=== PATIENT | male | born 1945 | race African-American/Black ===

== ENCOUNTER 2016-09-30 11:20 | Outpatient (CLI) | payer MEDICARE, BC, OTHER ==
[~2016-09-30] VITALS: Ht 170.2 cm; Wt 63.6 kg
--- NOTE | ~2016-09-30 | HEMODYNAMI ---
PATIENT:GREGOR SANTOS MEDICAL RECORD: [id number] : 49 LOCATION:[facility] ADMISSION DATE: 09/30/16 Generatedon:09/30/201614:47 Patient name: GREGOR SANTOS Patient #: [id number] SSN: : 1945 Date of study: 09/30/2016 Page: Of Hemodynamic Procedure Report Patient Data Patient Demographics Procedure consent was obtained First Name: GREGOR Gender: Male Last Name: TOM : 1945 Patient #: [id number] Age: 70 year(s) Race: Black Additional ID: [id number] Contact details Address: [address] [place] [address] State: [place] City: [place] Zip code: [address] Past Medical History Allergies: No known allergies Admission Admission Data Admission Date: 09/30/2016 Admission Time: 11:20 Lab Results Lab Result Date: 09/30/2016 Lab Result Time: 0:00 Biochemistry Name Units Result Min Max BUN mg/dl 24 --(----)-* 7 18 Creatinine mg/dl 1.4 --(----)*- 0.6 1.3 CBC Name Units Result Min Max Hemoglobin g/dl 15.6 --(--*-)-- 13.5 17.5 Procedure Procedure Types Cath Procedure Diagnostic Procedure [facility] w/Coronaries PCI Procedure Coronary Stent Initial Miscellaneous Procedures Moderate Sedation up to 45 minutes Procedure Description Procedure Date Procedure Date: 09/30/2016 Procedure Start Time: 14:17 Procedure End Time: 14:41 Procedure Staff Name Function Milan Beckford MD Performing Physician Robert Garibay RT Scrub Sarah Tubbs RN Nurse Scott Guido RT Monitor Procedure Data Cath Procedure Fluoroscopy Diagnostic fluoroscopy Total fluoroscopy Time: 7.8 time: 7.8 min min Diagnostic fluoroscopy Total fluoroscopy dose: 953 dose: 953 mGy mGy Contrast Material Contrast Material Type Amount (ml) Isovue 300 128 Entry Location Entry Primary Successful Side Size Upsize Upsize Entry Closure Harry ccessful Closure Location (Fr) 1 (Fr) 2 (Fr) Remarks Device Remarks Radial Right 6 Fr Mechanical artery Short Compression Diagnostic catheters Device Type Used For End Catheter Placement Cordis RBL-A catheter (NO LV Angiography CHARGE) Procedure Complications No complications Procedure Medications Medication Administration Route Dosage Oxygen NC 2 l/min Heparin Flush Bag added to field 2 bags (1000units/500ml NS) Lidocaine 2% added to field 20 Radial Cocktail added to field 1 syringe (Verapomil 2mg/Nitro 400mcg/Heparin 1500units) Versed I.V. 1 mg Fentanyl I.V. 50 mcg Versed I.V. 1 mg Fentanyl I.V. 50 mcg Radial Cocktail I.A. 1 syringe (Verapomil 2mg/Nitro 400mcg/Heparin 1500units) Heparin Bolus I.V. 4000 units Integrilin (Bolus I.V. 5.6 ml 2mg/ml) Plavix P.O. 600 mg Hemodynamics Rest HGB: 15.6 (g/dl) Heart Rate: 59 (bpm) Pressure Samples Time Site Value (mmHg) Purpose Heart Use Rate(bpm) 14:20 LV 107/-2,5 EDP 102 Gradients Valve Time Site Site Mean SEP/DFP Peak To Heart Use 1 2 (mmHg) (sec/min) Peak Rate (mmHg) (bpm) Aortic 14:20 LV AO 70 Snapshots Pre Cath Intra NCS Post Cath Vital Signs Time Heart Resp SPO2 NIBP Rhythm Pain Sedation Rate (ipm) (%) (mmHg) Status Level (bpm) 14:00:49 55 22 100 133/80(89) NSR 0 (11) 10(A) , No pain 14:05:05 61 21 97 121/64(90) NSR 0 (11) 10(A) , No pain 14:09:15 59 20 100 108/69(78) NSR 0 (11) 10(A) , No pain 14:13:19 59 20 100 103/67(77) NSR 0 (11) 9(A) , No pain 14:18:14 65 16 100 106/68(79) NSR 0 (11) 9(A) , No pain 14:22:22 65 16 100 89/58(70) NSR 0 (11) 9(A) , No pain 14:26:23 63 16 100 96/55(73) NSR 0 (11) 9(A) , No pain 14:30:25 60 16 100 92/65(78) NSR 0 (11) 9(A) , No pain 14:34:25 61 16 99 96/64(75) NSR 0 (11) 9(A) , No pain 14:38:24 63 16 100 99/70(80) NSR 0 (11) 10(A) , No pain 14:39:44 62 10 100 96/60(78) NSR 0 (11) 10(A) , No pain Medications Time Medication Route Dose Verified Delivered Reason Note s Effectiveness by by 14:00:04 Oxygen NC 2 l/min Milan Sarah Per physician St. Vasu Tubbs RN, MD 14:00:13 Heparin Flush added 2 bags Milan Milan used for Bag to Shakeel [place] procedure (1000units/500ml field MD SCHULZ NS) 14:00:21 Lidocaine 2% added 20ml Milan Milan used for to vial [place] procedure field MD SCHULZ 14:00:27 Radial Cocktail added 1 Milan Milan used for (Verapomil to syringe Shakeel [place] procedure 2mg/Nitro field MD SCHULZ 400mcg/Heparin 1500units) 14:08:16 Versed I.V. 1 mg Milan Sarah for sedation St. Vasu Tubbs RN, MD 14:08:21 Fentanyl I.V. 50 mcg Milan Sarah for sedation St. Vasu Tubbs RN, MD 14:11:00 Versed I.V. 1 mg Milan Sarah for sedation St. Vasu Tubbs RN, MD 14:11:08 Fentanyl I.V. 50 mcg Milan Sarah for sedation St. Vasu uTbbs RN, MD 14:16:55 Radial Cocktail I.A. 1 Milna Milan for (Verapomil syringe [place] vasodilation 2mg/Nitro MD SCHULZ 400mcg/Heparin 1500units) 14:29:02 Heparin Bolus I.V. 4000 Milan Sarah for dose units St. Vasu Tubbs RN anticoagulation verified MD with dr hinds 14:31:30 Integrilin I.V. 5.6 ml Milan Sarah for wast ed (Bolus 2mg/ml) Shakeel Caroline RN antiplatelet 4.4mL MD therapy 14:38:33 Plavix P.O. 600 mg Milan Smith for St. Vasu Tubbs RN antiplatelet MD therapy Procedure Log Time Note 13:30:11 Scott Guido RT(R) sent for patient. Start room use. 13:51:49 Informed consent obtained and on chart 13:52:17 Time tracking: Regular hours 13:52:20 Plan of Care:Hemodynamics will remain stable., Cardiac rhythm will remain stable., Comfort level will be maintained., Respiratory function will remain adequate., Patient/ family verbilizes understanding of procedure., Procedure tolerated without complication., Recovers from procedure without complications.. 13:52:29 Patient received from Pre/Post Procedure Room to [facility] 2 Alert and oriented. Tansferred to table in Supine position. 13:52:30 Warm blankets applied, and lynda hugger turned on for patient comfort. 13:52:30 Correct patient and procedure confirmed by team. 13:52:31 ECG and BP/O2 sat monitors applied to patient. 13:59:55 Vital chart was started 14:00:04 Oxygen 2 l/min NC was administered by Sarah Tubbs RN; Per physician; 14:00:13 Heparin Flush Bag (1000units/500ml NS) 2 bags added to field was administered by Milan Beckford MD; used for procedure; 14:00:21 Lidocaine 2% 20ml vial added to field was administered by Milan Beckford MD; used for procedure; 14:00:27 Radial Cocktail (Verapomil 2mg/Nitro 400mcg/Heparin 1500units) 1 syringe added to field was administered by Milan Beckford MD; used for procedure; 14:03:31 Baseline sample Acquired. 14:03:34 Rhythm: sinus rhythm 14:03:35 Full Disclosure recording started 14:05:55 H&P Date Dictated: 09/24/2016 Within 30 days and on chart., H&P Addendum completed by physician on day of procedure. (MUST COMPLETE FOR ALL OUTPATIENTS). 14:05:57 Pre-procedure instructions explained to patient. 14:05:57 Pre-op teaching completed and patient verbalized understanding. 14:05:59 Family in waiting room. 14:06:00 Patient NPO since Midnight. 14:06:05 Patient allergic to No known allergies 14:06:07 Is the patient allergic to Iodine/contrast media? No. 14:06:11 Is patient on blood thinner?No 14:06:13 Patient diabetic? No. 14:06:13 ----Pre-sedation anethsthesia assessment.---- 14:06:15 Previous problem with sedation/anesthesia? No ? 14:06:17 Snore? No 14:06:18 Sleep apnea? No 14:06:19 Deviated septum? No 14:06:20 Opens mouth fully? Yes 14:06:21 Sticks out tongue? Yes 14:06:26 Airway obstruction? Yes COPD 14:06:30 Dentures? No ? 14:06:32 Pre procedure: right dorsailis pedis pulse 1+ Palpable, but thready & weak; easily obliterated 14:06:35 Modified Alvaro's test Ulnar > 7 seconds. 14:06:37 Patient pain scale 0/10 ?. 14:06:48 IV patent on arrival in left wrist with 0.9% NaCl at 10ml/hr. 14:07:22 Lab Result : BUN 24 mg/dl 14:07:22 Lab Result : Creatinine 1.4 mg/dl 14:07:22 Lab Result : Hemoglobin 15.6 g/dl 14:07:26 Lab results completed and on chart. 14:07:28 Lab results completed and on chart. 14:07:34 Right Radial & Right Groin area was prepped with chlora-prep and draped in sterile fashion 14:07:34 Alarms reviewed by R. N. 14:07:35 Sharps counted by scrub and verified by R.N. 14:07:36 --------ALL STOP TIME OUT------ 14:07:36 Final Timeout: patient, procedure, and site verified with staff and physician. All members of the team are in agreement. 14:07:38 Right Radial & Right Groin site verified by team. 14:07:40 Physical assessment completed. ASA score P 2 - A patient with mild systemic disease as per Milan Beckford MD. 14:07:44 Sedation plan: IV Moderate Sedation Versed, Fentanyl 14:08:16 Versed 1 mg I.V. was administered by Sarah Tubbs RN; for sedation; 14:08:21 Fentanyl 50 mcg I.V. was administered by Sarah Caroline RN; for sedation; 14:11:00 Versed 1 mg I.V. was administered by Sarah Tubbs RN; for sedation; 14:11:08 Fentanyl 50 mcg I.V. was administered by Sarah Tubbs RN; for sedation; 14:16:55 Radial Cocktail (Verapomil 2mg/Nitro 400mcg/Heparin 1500units) 1 syringe I.A. was administered by Milan Beckford MD; for vasodilation; 14:17:06 Use device set Radial Dx 14:17:07 Acist Syringe opened to sterile field. 14:17:08 Medline Cath Pack opened to sterile field. 14:17:08 Bag Decanter opened to sterile field. 14:17:08 Terumo 6Fr Slender Glidesheath opened to sterile field. 14:17:09 St Jv 260cm J .035 wire opened to sterile field. 14:17:09 Acist Hand Control opened to sterile field. 14:17:10 Acist Manifold opened to sterile field. 14:17:10 Tegaderm 4 x 4 opened to sterile field. 14:17:10 MBrace Wrist Support opened to sterile field. 14:17:12 Procedure started. 14:17:25 Local anesthetic to right radial artery with Lidocaine 2% by Milan Beckford MD.INITIAL ACCESS ONLY 14:17:33 A 6 Fr Short sheath was inserted into the Right Radial artery 14:17:39 Zero performed for pressure channel P1 14:18:02 A Cordis RBL-A catheter (NO CHARGE) was advanced over the wire and used for LV Angiography. 14:20:01 LV angiography performed. 14:20:02 LV gram done using AU 14:20:07 LV hemodynamics recorded. 14:20:09 Injector settings: Ml/sec: 5, Volume: 15., 14:20:18 EF : 55 % 14:21:07 RCA angiography performed. 14:23:02 Catheter removed. 14:23:26 Cordis 6FR XBLAD 3.5 guide catheter opened to sterile field. 14:23:42 6 Fr XBLAD 3.5 guide catheter was inserted over the wire 14:25:25 LCA angiography performed. 14:27:23 Verdugo [place] 300cm 0.014 guide wire opened to sterile field. 14:27:23 Fashionchick BasixCompak Inflation Kit opened to sterile field. 14:27:40 ACC PCI Site: [facility] has 80% stenosis. 14:27:42 ACC Pre-intervention CARRIE Flow is 3. 14:29:02 Heparin Bolus 4000 units I.V. was administered by Sarah Tubbs RN; for anticoagulation; dose verified with dr hinds 14:29:41 COUGAR wire advanced. 14:31:28 Inflation number: 1 A Prichard Sci [place] 3.0 X 12 balloon was prepped and advanced across the Mid CX, then inflated to 10 ISACC for 0:15 (min:sec). 14:31:30 Integrilin (Bolus 2mg/ml) 5.6 ml I.V. was administered by Sarah Tubbs RN; for antiplatelet therapy; wasted 4.4mL 14::41 Inflation number: 2 The Prichard Sci [place] 3.0 X 12 balloon was reinflated across the Mid CX, to 8 ISACC for 0:09 (min:sec). 14:31:58 Inflation number: 3 The Prichard Sci [place] 3.0 X 12 balloon was reinflated across the Mid CX, to 4 ISACC for 0:11 (min:sec). 14:33:36 Balloon removed over the wire. 14:36:05 Inflation Number: 4 A Nexx Studiotronic Integrity 3.0 X 15 stent was prepped and advanced across the Mid CX. The stent was deployed at 14 ISACC for 0:45 (min:sec). 14:36:20 Stent catheter was removed intact over wire. 14:36:20 Wire removed. 14:36:21 Guide catheter removed. 14:36:34 Contrast amount:Isovue 300 128ml. 14:36:40 Sheath removed intact; hemostasis achieved with Mechanical Compression to the Right Radial artery. 14:36:46 Terumo TR Band Standard opened to sterile field. 14:38:11 Procedure ended.(Physican Out) 14:38:30 Fluoroscopy time 07.80 minutes. 14:38:33 Plavix 600 mg P.O. was administered by Sarah Tubbs RN; for antiplatelet therapy; 14:38:35 Fluoroscopy dose: 953 mGy 14:38:35 Flurop Dose total: 953 14:38:38 Sharps counted by scrub and verified by R.N. 14:38:40 TR band inflated with 10cc of air. 14:38:42 Insertion/operative site no bleeding no hematoma. 14:38:45 Post right radial artery:stable 14:38:46 Post Procedure Pulses reassessed and unchanged 14:38:51 Post procedure rhythm: sinus rhythm 14:38:52 Post procedure instruction explained to patient.Patient verbalizes understanding. 14:39:06 Procedure type changed to Cath procedure, Diagnostic procedure, LHC, LHC w/Coronaries, PCI procedure, Coronary Stent Initial, Miscellaneous Procedures, Moderate Sedation up to 45 minutes 14:39:10 Procedure and supply charges have been captured, reviewed, submitted and are correct. 14:39:34 Procedure Complication : No complications 14:39:36 Vital chart was stopped 14:39:36 See physician's report for complete and final results. 14:41:05 Report given to Pre/Post Procedure Room. 14:41:08 Patient transfered to Pre/Post Procedure Room with Stretcher. 14:41:10 Procedure ended. 14:41:10 Full Disclosure recording stopped 14:41:17 ACC-PCI Only Patient was given prescriptions, or instructed by Milan Beckford MD to start/continue the following medications upon discharge: Plavix 14:41:18 End room use (Document Last) Intervention Summary Intervention Notes Time ActionType Lesion and Equipment Action# Pressure Duration Attributes Used 14:31:28 Inflate Mid CX Prichard 1 10 00:15 balloon Sci [place] 3.0 X 12 balloon 14:31:41 Reinflate Mid CX Prichard 2 8 00:09 balloon Sci [place] 3.0 X 12 balloon 14:31:58 Reinflate Mid CX Prichard 3 4 00:11 balloon Sci [place] 3.0 X 12 balloon 14:36:05 Place stent Mid CX Medtronic 4 14 00:45 Integrity 3.0 X 15 stent Device Usage Item Name Manufacture Quantity Catalog Number Hospital Part Current Mini mal Lot# / Charge Number Stock Stock Serial# Code [facility] 1 07575 [id number] 742410 [id number] 20 Syringe Medical Systems Inc Medline Cardinal 1 [id number] 049867 79305 458238 5 Cath Pack Health Bag Microtek 1 2001S 297692 18905 799111 5 Tappx Medical Inc. Terumo 6Fr Terumo 1 [id number] 082645 900933 535552 [address] Jv St Jv 1 610291 304843 627913 149100 30 260cm J .035 wire Acist Hand Acist 1 22327 949104 740586 126720 5 Control Medical Systems Inc Acist Acist 1 97772 244444 620169 287233 5 Manifold Medical Systems Inc Tegaderm 4 3M 1 1626W 470693 057209 964157 5 x 4 MBrace Advanced 1 140-0250-00 969878 52003 584055 5 Wrist Vascular Support Dynamics Cordis Cardinal 1 [id number] 825552 802090 5 RBL-A Health catheter (NO CHARGE) Cordis 6FR Cardinal 1 [id number] 607065 007711 378353 10 XBLAD 3.5 Health guide catheter Verdugo Verdugo 1 [id number] 476002 246724 421392 1 [place] Vascular 300cm 0.014 guide wire Merit Merit 1 [id number] 924352 678851 738102 15 BasixCompak Medical Inflation Kit Prichard Sci Prichard 1 [id number] 830387 686896 537764 1 [id number] Kogent Surgical 3.0 X 12 balloon Medtronic Medtronic 1 [id number] 600449 512333 195195 1 [id number] Integrity 3.0 X 15 stent Terumo TR Terumo 1 [id number] 044070 584734 580678 40 Band Standard Signature Audit [place] Stage Time Signature Unsigned Intra-Procedure 09/30/2016 Scott Guido 2:47:52 PM RT(R) Signatures Monitor : Scott Guido RT Signature : Date : Time : [facility] [address] [place] [address]
[2016-09-30] MEDS ORDERED: SPIRIVA18 MCG INH (12:10)
[2016-09-30] MEDS ORDERED: SYMBICORT 16010.2 GM INH (12:10)
[2016-09-30 12:11] VITALS: BP 103/72; Ht 170.2 cm; Wt 63.6 kg
[2016-09-30 12:30] LABS: BASOPHILS 0.4 % (0.0-2.0); EOSINOPHILS 1.9 % (0-7); HEMATOCRIT 46.7 % (42.0-54.0); HEMOGLOBIN 15.6 g/dL (13.5-17.5); IMMATURE GRANULOCYTES 0.4 % (0-5); LYMPHOCYTES 37.4 % (15-50); MCH 28.3 pg (26.0-34.0); MCHC 33.4 g/dL (31.0-37.0); MCV 84.6 fL (80.0-100.0); MEAN PLATELET VOLUME 10.9 fL (7.4-10.4); MONOCYTES 7.9 % (2-11); PLATELET COUNT 251 10x3/uL (130-400); RBC 5.52 10x6/uL (4.20-6.10); RDW 16.1 % (11.5-14.5); WBC 5.7 10x3/uL (4.8-10.8)
[2016-09-30 13:00] LABS: ANION GAP 13.4 mmol/L (8-16); CALCIUM 8.8 mg/dL (8.5-10.1); CARBON DIOXIDE 23.8 mmol/L (21.0-32.0); CREATININE - SERUM 1.4 mg/dL (0.6-1.3); POTASSIUM - SERUM 4.2 mmol/L (3.5-5.1)
[2016-09-30] MEDS ORDERED: PLAVIX75 MG PO (17:04)
--- NOTE | 2016-09-30 17:56 | NUR ---
1515-TR BAND INTACT, NO BLEEDING AT SITE, RESTING 1545-NO CHANGES TO SITE, CONT TO REST
--- NOTE | 2016-09-30 18:43 | NUR ---
182-AWAITING RIDE, DENIES FURTHUR NEEDS- BROTHER IN LAW HERE. D'C HOME
--- NOTE | 2016-10-05 13:10 | OP ---
PATIENT NAME: GREGOR SANTOS MEDICAL RECORD: [id number] :49 LOCATION:D.CAT ADMISSION DATE: SURGEON: MICHAEL STILES MD DATE OF OPERATION: 09/30/2016 PROCEDURES: Left heart catheterization, selective coronary angiography, right radial artery approach. CATHETERS: A 5-Panamanian sheath. The procedure was well tolerated. We proceeded immediately to PTCA stenting of the circumflex after procedure was finished. FINDINGS: Left ventriculography in 30-degree AU view: Normal wall motion and normal systolic function. CORONARY ANATOMY: LEFT MAIN: Left main is free of disease. LAD: Free of disease in the diagonal system. CIRCUMFLEX: Has a tight stenosis of 80% in the takeoff of first OM. RIGHT CORONARY ARTERY: Normal. IMPRESSION: Single-vessel disease involving circumflex. PLAN: Intervention of this vessel momentarily. DESCRIPTION OF PROCEDURE: A 5-Panamanian sheath was changed for a 6-Panamanian sheath. An XB LAD guide catheter provided excellent guide catheter support followed by 300 cm Grant XT wire placed across the tight stenosis down to the portion of this vessel. Stent deployed was a 3.0 x 15 mm Integrity nondrug-eluting stent. It was inflated to 14 atmospheres for 45 seconds. Final angiography shows excellent resolution of 80% stenosis, no significant residual. CARRIE flow was 3 throughout the procedure. Integrilin was used in the case. Plavix was loaded in the lab. Sheath was closed with TR band. TRANSINT:[id number] Voice Confirmation ID: [id number] DOCUMENT ID: [id number] MICHAEL STILES MD at 1310 CC: [id number] DICTATION DATE: 09/30/16 1446 DRUG ROOM OPERATOR: 09/30/16 1554 DEP CLI 09/30/16 [place] [id number] [place] [id number]
== END 2016-09-30 18:25 | disposition home or self-care (01) ==
LOC: D.CATH 11:20
PROVIDERS: Internal Medicine Interventional Cardiology
DX: I20.9 Angina pectoris, unspecified (principal); R94.39 Abnormal result of other cardiovascular function study; Z87.891 Personal history of nicotine dependence

== ENCOUNTER 2017-04-19 10:34 | Emergency (ER) | payer MEDICARE, BC, OTHER ==
[2016-09-30 12:11] VITALS: BMI 21.9
[~2017-04-19 10:34] MED LIST: PLAVIX75 MG PO; SPIRIVA18 MCG INH; SYMBICORT 16010.2 GM INH
== END 2017-04-19 16:48 | disposition home or self-care (01) ==
LOC: D.ER 10:34
DX: R42 Dizziness and giddiness (principal)

== ENCOUNTER → 2017-06-03 07:18 | Outpatient (CLI) | payer MEDICARE, BC, OTHER ==
[2016-09-30 12:11] VITALS: BMI 21.9
[2017-06-03 07:55] LABS: ANION GAP 11.5 mmol/L (8-16); CALCIUM 8.7 mg/dL (8.5-10.1); CARBON DIOXIDE 27.5 mmol/L (21.0-32.0); CREATININE - SERUM 1.4 mg/dL (0.6-1.3)
== END | disposition home or self-care (01) ==
LOC: D.LAB 07:18 → D.MRI 08:00
PROVIDERS: Legal Medicine
DX: R42 Dizziness and giddiness (principal)

== ENCOUNTER → 2017-06-07 10:09 | Outpatient (CLI) | payer MEDICARE, BC, OTHER ==
[2016-09-30 12:11] VITALS: BMI 21.9
== END | disposition home or self-care (01) ==
LOC: D.LAB 06-03 07:45 → D.CT 10:09
DX: R59.0 Localized enlarged lymph nodes (principal)

== ENCOUNTER → 2017-07-05 14:24 | Outpatient (CLI) | payer MEDICARE, BC, OTHER ==
[2016-09-30 12:11] VITALS: BMI 21.9
== END | disposition home or self-care (01) ==
LOC: D.MRI 14:24
DX: M54.2 Cervicalgia (principal)

== ENCOUNTER → 2018-07-20 11:56 | Outpatient (CLI) | payer MEDICARE, BC, OTHER ==
[2016-09-30 12:11] VITALS: BMI 21.9
== END | disposition home or self-care (01) ==
LOC: D.RAD 11:56
DX: M79.672 Pain in left foot (principal)

== ENCOUNTER → 2018-08-30 13:41 | Outpatient (CLI) | payer MEDICARE, BC, OTHER ==
[2016-09-30 12:11] VITALS: BMI 21.9
--- NOTE | 2018-09-01 13:10 | EC ---
PATIENT:GREGOR SANTOS DATE OF SERVICE: 08/30/18 SEX: M MEDICAL RECORD: [id number] DATE OF : [birth year] [facility] AGE OF PATIENT: 72 ADMISSION DATE: 08/30/18 REFERRING PHYSICIAN: INTERPRETING PHYSICIAN: MICHAEL STILES MD ECHOCARDIOGRAM REPORT ECHO CHARGES 4 ECHO COMPLETE Date: 08/30/18 CLINICAL DIAGNOSIS: CAD ECHOCARDIOGRAPHIC MEASUREMENTS (adult normal given) AC root (d.<3.7cm) 2.9 cm LV Septum d (<1.2 cm> 1.2 cm Valve Excursion 1.6 cm LV Septum (systole) 1.3 cm Left Atria (s.<4.0cm> 3.0 cm LVPW d(<1.2cm) 1.1 cm RV (d.<2.3cm) 3.7 cm LVPW (sytole) 1.2 cm LV diastole(<5.6CM) 4.6 cm MV E-F(>70mm/sec) cm LV systole 2.5 cm LVOT Diameter 1.5 cm MV exc.(>10mm) 1.4 cm Est.ejection fraction (50-75%) % DOPPLER: LVIT cm/sec A 53.0 cm/sec E 86.0 cm/sec LA cm/sec RVSP 27 mmHg LVOT 96 cm/sec AOP1/2T m/s Asc. Ao 143 cm/sec RVOT 66 cm/sec RA cm/sec PA 83 cm/sec AV Gradient Peak 8.13 mmHg AV Mean 4.38 mmHg AV Area 2.2 cm MV Gradient Peak 2.66 mmHg MV Mean 0.93 mmHg MV Area cm COMMENTS: Tipple Boss: 2 JOSE ANTONIO JOHNSON Satellite Tv Installer: 3 Dr. Beckford TAPE# PACS Pericardial Effusion N DATE OF SERVICE: Adequate 2D, color flow, spectral Doppler, and M-Mode. No LVH. LV internal dimension is normal. Wall motion is normal. EF is greater than or equal to 55%. Aortic valve is tricuspid. No evidence of stenosis by Doppler interrogation. Left atrium normal at 3.0 cm. Mitral valve shows no prolapse. Trace MR. Right-sided chamber size is grossly normal. Trace TR. TRANSINT:[id number] Voice Confirmation ID: [id number] DOCUMENT ID: [id number] ECHOCARDIOGRAM REPORT [id number] GREGOR SANTOS MICHAEL STILES MD at 1310 CC: [id number] DICTATION DATE: 08/31/18 1422 INDUSTRIAL ENGINEERING: 09/01/18 0007 DEP CLI 08/30/18 [place] [id number] [place] [address]
== END | disposition home or self-care (01) ==
LOC: D.HCCARDIO 13:41
PROVIDERS: ATTEND Internal Medicine Interventional Cardiology
DX: I25.10 Atherosclerotic heart disease of native coronary artery without angina pectoris (principal)

== ENCOUNTER → 2019-09-12 10:42 | Outpatient (CLI) | payer MEDICARE, BC, OTHER ==
[2016-09-30 12:11] VITALS: BMI 21.9
--- NOTE | 2019-09-14 14:26 | EC ---
PATIENT:GREGOR SANTOS DATE OF SERVICE: 09/12/19 SEX: M MEDICAL RECORD: [id number] DATE OF : [birth year] [facility] AGE OF PATIENT: 73 ADMISSION DATE: 09/12/19 REFERRING PHYSICIAN: INTERPRETING PHYSICIAN: MICHAEL STILES MD ECHOCARDIOGRAM REPORT ECHO CHARGES 4 ECHO COMPLETE Date: 09/12/19 CLINICAL DIAGNOSIS: PRE-OP EVALUATION H/O HTN/CAD ECHOCARDIOGRAPHIC MEASUREMENTS (adult normal given) AC root (d.<3.7cm) 3.2 cm LV Septum d (<1.2 cm> 1.2 cm Valve Excursion 1.8 cm LV Septum (systole) 1.5 cm Left Atria (s.<4.0cm> 4.1 cm LVPW d(<1.2cm) 1.1 cm RV (d.<2.3cm) 2.4 cm LVPW (sytole) 1.5 cm LV diastole(<5.6CM) 4.2 cm MV E-F(>70mm/sec) cm LV systole 2.5 cm LVOT Diameter 1.7 cm MV exc.(>10mm) cm Est.ejection fraction (50-75%) % DOPPLER: LVIT cm/sec A 27.0 cm/sec E 66.0 cm/sec LA cm/sec RVSP 33.0 mmHg LVOT 94.0 cm/sec AOP1/2T m/s Asc. Ao 135 cm/sec RVOT 46.0 cm/sec RA cm/sec PA 66.0 cm/sec AV Gradient Peak 7.3 mmHg AV Mean 3.9 mmHg AV Area 1.6 cm MV Gradient Peak 2.9 mmHg MV Mean 0.60 mmHg MV Area cm COMMENTS: OP - HC Tapeman: 1 EDILBERTO BRINA Barrel Racer: 3 Dr. Beckford TAPE# PACS Pericardial Effusion N DATE OF SERVICE: Adequate 2D, color flow imaging, spectral Doppler, and M-Mode Borderline LVH. LV internal dimensions are normal. Wall motion is normal. EF is greater than or equal to 55%. Aortic valve is tricuspid. No evidence of stenosis by Doppler interrogation. Left atrium is mildly dilated at 4.1 cm. Mitral valve shows no prolapse. Trace MR. Right-sided chambers are grossly normal. Moderate TR. ECHOCARDIOGRAM REPORT [id number] GREGOR SANTOS TRANSINT:[id number] Voice Confirmation ID: [id number] DOCUMENT ID: [id number] MICHAEL STILES MD at 1426 CC: [id number] DICTATION DATE: 09/13/19 1100 SANDING MACHINE OPERATOR: 09/13/19 1356 DEP CLI 09/12/19 [place] [id number] [place] [id number]
== END | disposition home or self-care (01) ==
LOC: D.HCCECHO 10:42
PROVIDERS: ATTEND Internal Medicine Interventional Cardiology
DX: I25.10 Atherosclerotic heart disease of native coronary artery without angina pectoris (principal)

== ENCOUNTER 2020-01-29 05:48 | Day surgery (SDC) | payer MEDICARE, BC, OTHER ==
[~2020-01-29] VITALS: Ht 170.2 cm; Wt 65.9 kg
[2020-01-29 06:22] LABS: BASOPHILS 0.2 % (0-2); EOSINOPHILS 2.9 % (0-7); HEMATOCRIT 47.3 % (42.0-54.0); HEMOGLOBIN 15.2 g/dL (13.5-17.5); IMMATURE GRANULOCYTES 0.3 % (0-5); LYMPHOCYTES 41.6 % (15-50); MCH 27.4 pg (26.0-34.0); MCHC 32.1 g/dL (31.0-37.0); MCV 85.2 fL (80.0-100.0); MEAN PLATELET VOLUME 9.9 fL (7.4-10.4); MONOCYTES 10.9 % (2-11); NEUTROPHILS 44.1 % (40-80); PLATELET COUNT 223 10x3/uL (130-400); RBC 5.55 10x6/uL (4.20-6.10); RDW 17.5 % (11.5-14.5); WBC 5.9 10x3/uL (4.8-10.8)
[2020-01-29] MEDS ORDERED: LIPITOR80 MG PO (06:35)
[2020-01-29] MEDS ORDERED: VENTOLIN HFA [SP8 GM INH (06:35)
[2020-01-29 06:43] LABS: ANION GAP 7.4 mmol/L (8-16); CARBON DIOXIDE 25.4 mmol/L (21.0-32.0); CREATININE - SERUM 1.5 mg/dL (0.6-1.3); POTASSIUM - SERUM 3.8 mmol/L (3.5-5.1)
[2020-01-29 06:52] VITALS: BP 116/70; Ht 170.2 cm; Wt 65.9 kg
--- NOTE | 2020-01-29 09:05 | NUR ---
DC INSTRUCTIONS GIVEN TO PT. STATES UNDERSTANDING. DC'D IV CATH FULLY INTACT. I CALLED PT'S WRAPPING MACHINE OPERATOR AND LEFT A MESSAGE. PT ABLE TO CONTACT WRAPPING MACHINE OPERATOR. [facility] WILL BE HERE SHORTLY TO BUILDING SERVICES SUPERVISOR PT FROM HOSPITAL. WILL DC ONCE PT'S WRAPPING MACHINE OPERATOR ARRIVES.
--- NOTE | 2020-01-29 09:21 | NUR ---
PT VOIDED. PT LEFT UNIT VIA WC AT 4745
--- NOTE | 2020-01-30 15:26 | OP ---
PATIENT NAME: GREGOR SANTOS MEDICAL RECORD: [id number] :49 LOCATION:[facility] ADMISSION DATE: SURGEON: KARLI GOEL DO DATE OF OPERATION: 01/29/2020 PROCEDURE: EGD with biopsies. INDICATION FOR PROCEDURE: Nausea and left upper quadrant abdominal pain. SCOPE: Olympus video gastroscope. MEDICATIONS: Propofol 150 mg IV per anesthesia. ESTIMATED BLOOD LOSS: Minimal. COMPLICATIONS: None. FINDINGS: Informed consent was given. The patient was made comfortable with the above medication. After reaching an adequate level of sedation by slow IV push, the patient was placed on his left side. The endoscope was advanced under direct visualization through the mouth to the second portion of the duodenum. The esophagus appeared normal down to the GE junction. At the GE junction, there were minor changes consistent with LA class A reflux-induced esophagitis. The endoscope was advanced beyond the GE junction into the stomach and retroflexed to view the cardia and fundus. There was a small sliding hiatal hernia without associated ulcers or other abnormalities. Throughout the entire stomach, there were patches of erythema and granularity consistent with mild chronic gastritis. Cold forceps biopsies were taken from the antrum and incisura to submit for histopathology and to rule out the presence of H. pylori. The endoscope was advanced beyond the pylorus into the duodenum, which appeared normal to the second portion. The endoscope was then withdrawn from the patient. The patient tolerated the procedure well and there were no complications. IMPRESSION: 1. LA class A reflux-induced esophagitis. 2. Small sliding hiatal hernia. 3. Mild chronic gastritis changes. PLAN AND RECOMMENDATIONS: 1. Discharge home when recovery parameters are met. 2. Follow up biopsy specimen results. 3. GERD diet and reflux precautions. 4. Continue current medications. 5. The patient currently has no symptoms of nausea or abdominal pain as well as no reflux or heartburn. Considering that he has lack of any symptoms, I would not recommend starting any antacid medications consistently at this time. He can use as needed Pepcid or famotidine if symptoms do arise, then should notify the GI clinic if the symptoms do return. 6. Follow up in GI clinic as needed and maintain screening colonoscopies as scheduled. TRANSINT:[id number] Voice Confirmation ID: [id number] DOCUMENT ID: [id number] OPERATIVE REPORT [id number] GREGOR SANTOSKARLI HICKS DO at 1526 CC: [id number] DICTATION DATE: 01/29/20 08 LABORER VINEYARD: 01/29/20 1730 [facility] 01/29/20 [place] [id number] [place] [address]
== END 2020-01-29 09:23 | disposition home or self-care (01) ==
LOC: D.OPS 05:48
PROVIDERS: Anesthesiology; ATTEND Internal Medicine Gastroenterology
DX: R11.0 Nausea (principal); R10.12 Left upper quadrant pain

== ENCOUNTER 2020-03-07 10:07 | Emergency (ER) | payer MEDICARE, BC, OTHER ==
[~2020-03-07] VITALS: Ht 170.2 cm; Wt 65.9 kg
[~2020-03-07 10:07] MED LIST changes: +LIPITOR80 MG PO; +VENTOLIN HFA [SP8 GM INH
[2020-03-07 10:20] VITALS: BP 113/72; Ht 170.2 cm; Wt 65.9 kg
== END 2020-03-07 12:41 | disposition home or self-care (01) ==
LOC: D.ER 10:07
DX: S63.502A Unspecified sprain of left wrist, initial encounter (principal); J44.9 Chronic obstructive pulmonary disease, unspecified; W19.XXXA Unspecified fall, initial encounter; Y93.9 Activity, unspecified; Y92.9 Unspecified place or not applicable

== ENCOUNTER 2020-03-25 11:15 | Day surgery (SDC) | payer MEDICARE, BC, OTHER ==
[~2020-03-25] VITALS: Ht 170.2 cm; Wt 67.3 kg
[2020-03-25 11:48] LABS: BASOPHILS 0.2 % (0-2); HEMATOCRIT 48.6 % (42.0-54.0); HEMOGLOBIN 15.6 g/dL (13.5-17.5); IMMATURE GRANULOCYTES 0.2 % (0-5); LYMPHOCYTES 49.1 % (15-50); MCH 27.3 pg (26.0-34.0); MCHC 32.1 g/dL (31.0-37.0); MONOCYTES 8.8 % (2-11); NEUTROPHILS 39.7 % (40-80); PLATELET COUNT 262 10x3/uL (130-400); RBC 5.72 10x6/uL (4.20-6.10); RDW 16.8 % (11.5-14.5)
[2020-03-25 12:01] LABS: APTT 41.5 SECONDS (22.8-39.4); INR 1.08 (0.85-1.17)
[2020-03-25 12:49] VITALS: BP 125/74; Ht 170.2 cm; Wt 67.3 kg
--- NOTE | 2020-03-25 14:53 | NUR ---
1440 IV DC'D. CATHETER TIP INTACT. NO BLEEDING AT SITE. BANDAID APPLIED. PT VOICES UNDERSTANDING OF DISCHARGE INSTRUCTIONS THAT WAS REVIEWED WITH HIM.
--- NOTE | 2020-03-27 17:32 | OP ---
PATIENT NAME: GREGOR SANTOS MEDICAL RECORD: [id number] :49 [facility] DATE: SURGEON: KARLI GOEL DO DATE OF OPERATION: 03/25/2020 PROCEDURE: Colonoscopy with polypectomy. INDICATIONS FOR PROCEDURE: Screening for colorectal cancer, history of colon polyps, family history of colon cancer. SCOPE: Olympus video pediatric colonoscope. MEDICATIONS: Propofol 200 mg IV per anesthesia. WITHDRAWAL TIME: 12 minutes. ESTIMATED BLOOD LOSS: Minimal. COMPLICATIONS: None. FINDINGS: Informed consent was given. The patient was made comfortable with the above medication. After reaching an adequate level of sedation by slow IV push, the patient was placed on his left side. A digital rectal examination was performed and was normal. The endoscope was then advanced under direct visualization from the rectum to the cecum, confirmed by the presence of the appendiceal orifice and ileocecal valve. The terminal ileum was briefly intubated. The endoscope was slowly withdrawn and the mucosa was carefully examined. The prep quality was good. There were multiple polyps visualized on today's examination. The first was located in the cecum. It was benign appearing sessile polyp, which measured approximately 4 mm in diameter. It was removed using a hot snare. There were 3 separate polyps in the transverse colon which were benign-appearing and sessile and ranged in size from 3-6 mm in diameter. Two of the larger polyps were removed using hot snare and the smallest was removed using hot forceps. In the descending colon, there were 3 separate benign-appearing sessile polyps, which ranged in size from 2-4 mm in diameter. They were all removed using hot forceps. In the sigmoid colon, there was a benign appearing sessile polyp, which measured approximately 3 mm in diameter. It was removed using hot forceps. Retroflexion was performed in the rectum with visualization of grade I internal hemorrhoids without bleeding. The endoscope was withdrawn from the patient. The patient tolerated the procedure well and there were no complications. IMPRESSION: 1. Multiple polyps as described above, removed using a combination of the hot snare and hot forceps. 2. Grade I internal hemorrhoids without bleeding. PLAN AND RECOMMENDATIONS: 1. Discharge home when recovery parameters are met. 2. Follow up biopsy specimen results. 3. High fiber diet. 4. Continue current medications. 5. Recall colonoscopy in 3 years. TRANSINT:[id number] Voice Confirmation ID: [id number] DOCUMENT ID: [id number] OPERATIVE REPORT [id number] GREGOR SANTOS NATHAN A DO at 1732 CC: [id number] DICTATION DATE: 03/25/20 140 HIM ANALYST: 03/25/20 2146 [facility] 03/25/20 [place] [id number] [place] [id number]
== END 2020-03-25 14:49 | disposition home or self-care (01) ==
LOC: D.OPS 11:15
PROVIDERS: Anesthesiology; ATTEND Internal Medicine Gastroenterology
DX: K63.5 Polyp of colon (principal); Z12.11 Encounter for screening for malignant neoplasm of colon; Z86.010 Personal history of colon polyps; Z80.0 Family history of malignant neoplasm of digestive organs; R10.12 Left upper quadrant pain; R11.0 Nausea

== ENCOUNTER → 2020-09-24 09:03 | Outpatient (CLI) | payer MEDICARE, BC, OTHER ==
[2020-03-25 12:49] VITALS: BMI 23.2
--- NOTE | ~2020-09-24 | EC ---
PATIENT:GREGOR SANTOS DATE OF SERVICE: 09/24/20 SEX: M MEDICAL RECORD: [id number] DATE OF : 49 LOCATION:D[facility] AGE OF PATIENT: 74 ADMISSION DATE: 09/24/20 REFERRING PHYSICIAN: INTERPRETING PHYSICIAN: MICHAEL STILES MD ECHOCARDIOGRAM REPORT ECHO CHARGES 4 ECHO COMPLETE Date: 09/24/20 CLINICAL DIAGNOSIS: CAD/ASSESS EF ECHOCARDIOGRAPHIC MEASUREMENTS (adult normal given) AC root (d.<3.7cm) 3.0 cm LV Septum d (<1.2 cm> 1.4 cm Valve Excursion 1.5 cm LV Septum (systole) 1.6 cm Left Atria (s.<4.0cm> 3.6 cm LVPW d(<1.2cm) 1.4 cm RV (d.<2.3cm) 3.7 cm LVPW (sytole) 1.6 cm LV diastole(<5.6CM) 4.1 cm MV E-F(>70mm/sec) cm LV systole 1.9 cm LVOT Diameter 1.9 cm MV exc.(>10mm) 1.4 cm Est.ejection fraction (50-75%) % DOPPLER: LVIT cm/sec A 53.0 cm/sec E 74.0 cm/sec LA cm/sec RVSP 34 mmHg LVOT 115 cm/sec AOP1/2T m/s Asc. Ao 136 cm/sec RVOT 70 cm/sec RA cm/sec PA 97 cm/sec AV Gradient Peak 7.38 mmHg AV Mean 3.7 mmHg AV Area 2.2 cm MV Gradient Peak 2.28 mmHg MV Mean 0.87 mmHg MV Area cm COMMENTS: Generation Engineering Technologist: 2 JOSE ANTONIO JOHNSON Tax Agent: 3 Dr. Beckford TAPE# PACS Pericardial Effusion N DATE OF SERVICE: Adequate 2D, color-flow imaging, spectral Doppler, and M-Mode FINDINGS: Mild LVH. LV internal dimensions are normal. Wall motion is normal. EF greater than or equal to 55%. Aortic valve is sclerotic. No evidence of stenosis by Doppler interrogation. Left atrium is normal. Mitral valve shows no prolapse. Trace MR. Right-side is grossly normal. Trace TR. TRANSINT:[id number] Voice Confirmation ID: [id number] DOCUMENT ID: [id number] ECHOCARDIOGRAM REPORT [id number] TOM,MICHAEL BEY MD CC: [id number] DICTATION DATE: 09/25/20912 JUNIOR PROJECT COORDINATOR: 09/25/20 1432 DEP CLI 09/24/20 [place] [id number] [place] [address]
== END | disposition home or self-care (01) ==
LOC: D.HCCECHO 09:03
PROVIDERS: ATTEND Internal Medicine Interventional Cardiology
DX: I25.10 Atherosclerotic heart disease of native coronary artery without angina pectoris (principal)